=== PATIENT | male | born 1995 | race African-American/Black ===

== ENCOUNTER 2018-05-29 18:53 | Inpatient (IN) | payer MEDICAID, OTHER ==
[~2018-05-29] VITALS: Ht 172.7 cm; Wt 98.2 kg
[2018-05-29 19:28] LABS: Basophils # (auto) 0 uL; Basophils % (auto) 0.3 % (0.0-2.0); Eosinophils # (auto) 0 uL; Eosinophils % (auto) 0.1 % (0.0-7.0); Hematocrit 46.5 % (41.0-53.0); Hemoglobin 15.8 g/dL (13.5-17.5); Lymphocytes # (auto) 0.6 uL; Lymphocytes % (auto) 7.8 % (10.0-50.0); Mean Corpuscular Hemoglobin 29.7 pg (28.0-32.0); Mean Corpuscular Hgb Conc. 33.8 g/dL (32.0-36.0); Mean Corpuscular Volume 87.7 fL (80.0-100.0); Monocytes # (auto) 0 uL; Monocytes % (auto) 0.6 % (0.0-12.0); Neutrophils # (auto) 6.8 uL; Neutrophils % (auto) 91.2 % (37.0-80.0); Platelet Count (auto) 231 10^3/uL (140-450); Red Blood Cells 5.31 10^6/uL (4.5-5.90); Red Cell Distribution Width 13.8 % (11.8-14.3); White Blood Cell 7.4 10^3/uL (4.4-10.8)
[2018-05-29 19:44] LABS: Urine Bacteria FEW /hpf (None Seen); Urine Blood 1+ /uL (Negative); Urine Mucus FEW (None Seen); Urine WBC 10 /hpf (0 - 3)
[2018-05-29] MEDS ORDERED: SODIUM CHLORIDE 0.9% 3,150 ML IV ONE (19:45)
[2018-05-29 19:46] LABS: Amphetamine Screen, Urine NEGATIVE (NEGATIVE); Barbiturate Scree,Urine NEGATIVE (NEGATIVE); Benzodiazephine Screen, Urine NEGATIVE (NEGATIVE); Cannabinoid Screen, Urine NEGATIVE (NEGATIVE); Cocaine Screen, Urine NEGATIVE (NEGATIVE); Opiate Scree,Urine NEGATIVE (NEGATIVE); Phencyclidine Screen, Urine NEGATIVE (NEGATIVE)
[2018-05-29 19:47] LABS: Albumin 3.6 g/dL (3.4-5.0); BUN/Creatinine Ratio 8.1; Calcium 8.8 mg/dL (8.5-10.1); Potassium 4.1 mmol/L (3.5-5.1)
[2018-05-29 19:48] LABS: Alcohol, Urine < 3.0 mg/dL (0-5)
[2018-05-29 19:50] LABS: Bilirubin, Total 1.8 mg/dL (0.2-1.0); Total Protein 8.5 g/dL (6.4-8.2)
[2018-05-29] MEDS ORDERED: cefTRIAXone 1GM/50ML D5W 50 ML IV ONE (20:00)
[2018-05-29] MEDS ORDERED: ACETAMINOPHEN 500 MG TAB PO ONE (20:00)
[2018-05-29 20:20] LABS: Lactic Acid w/Reflex 2.5 mmol/L (0.4-2.0)
[2018-05-29 20:30] LABS: INR 0.94 (0.9-1.15); Partial Thromboplastin Time 28.5 sec (23.78-33.04); Prothrombin Time 10.1 sec (9.27-12.13)
[2018-05-29] MEDS ORDERED: IODIXANOL 320MG/ML 100ML BTL IV ONE (21:49)
[2018-05-29] MEDS ORDERED: VANCOMYCIN 1GM/250ML 250 ML IV ONE (22:15)
[2018-05-30] VITALS (7 sets, daily range): BP systolic 105–133; BP diastolic 45–82
[2018-05-30] MEDS ORDERED: TEMAZEPAM 15 MG CAP PO PRN (00:30)
[2018-05-30] MEDS ORDERED: ONDANSETRON HCL 4 MG/2 ML VIAL IV PRN ×2 (00:30→01:15)
[2018-05-30] MEDS ORDERED: SODIUM CHLORIDE 0.9% 1,000 ML IV ONE ×2 (01:00→07:15)
[2018-05-30] MEDS ORDERED: VANCOMYCIN PER PHARMACY 0 MG IV SCH (01:00)
[2018-05-30] MEDS ORDERED: HYDROcodone-ACET 5/325MG TAB PO PRN (01:15)
[2018-05-30] MEDS ORDERED: MORPHINE SULFATE 4 MG/ML SYR/VIAL IV PRN (01:15)
[2018-05-30] MEDS ORDERED: NITROGLYCERIN 0.4 MG SL TAB SL PRN (01:15)
[2018-05-30] MEDS ORDERED: ACETAMINOPHEN 325 MG TAB PO PRN (01:15)
[2018-05-30] MEDS ORDERED: SODIUM CHLORIDE 0.9% 1,000 ML IV SCH (02:00)
[2018-05-30] MEDS ORDERED: VANCOMYCIN 1GM/250ML 250 ML IV ONE (02:00)
[2018-05-30] MEDS ORDERED: LEVOFLOXACIN 500MG 100 ML IV SCH (02:00)
[2018-05-30 04:57] LABS: Basophils # (auto) 0 uL; Basophils % (auto) 0.4 % (0.0-2.0); Eosinophils # (auto) 0 uL; Hematocrit 47.1 % (41.0-53.0); Hemoglobin 15.5 g/dL (13.5-17.5); Lymphocytes # (auto) 1.1 uL; Mean Corpuscular Hemoglobin 29.4 pg (28.0-32.0); Mean Corpuscular Hgb Conc. 32.9 g/dL (32.0-36.0); Mean Corpuscular Volume 89.3 fL (80.0-100.0); Neutrophils % (auto) 82.6 % (37.0-80.0); Platelet Count (auto) 206 10^3/uL (140-450); Red Blood Cells 5.27 10^6/uL (4.5-5.90); Red Cell Distribution Width 13.9 % (11.8-14.3); White Blood Cell 12.2 10^3/uL (4.4-10.8)
[2018-05-30 05:20] LABS: Potassium 4.3 mmol/L (3.5-5.1)
[2018-05-30] MEDS: ACETAMINOPHEN 325 MG TAB PO PRN (05:26)
[2018-05-30 05:27] LABS: Albumin 3.2 g/dL (3.4-5.0); BUN/Creatinine Ratio 7.3; Bilirubin, Total 1.8 mg/dL (0.2-1.0); Calcium 8.3 mg/dL (8.5-10.1); Total Protein 7.8 g/dL (6.4-8.2)
[2018-05-30] MEDS: SODIUM CHLORIDE 0.9% 1,000 ML IV SCH ×3 (07:15→23:40)
[2018-05-30] MEDS ORDERED: IBUPROFEN 800 MG TAB PO ONE (07:30)
[2018-05-30] MEDS: PIPERACILLIN-TAZOB 3.375GM 100 ML IV SCH ×4 (07:30→23:39)
[2018-05-30] MEDS: LEVOFLOXACIN 500MG 100 ML IV SCH (10:00)
[2018-05-30] MEDS: FAMOTIDINE 20 MG TAB PO SCH ×2 (10:00→21:23)
[2018-05-30] MEDS ORDERED: FAMOTIDINE 20 MG TAB PO SCH (10:00)
[2018-05-30] MEDS ORDERED: CEFTRIAXONE SODIUM 2 GM in D5W 5% 50 ML IV ONE (10:30)
[2018-05-30] MEDS ORDERED: VANCOMYCIN 1GM/250ML 250 ML IV SCH (15:00)
[2018-05-30] MEDS ORDERED: cefTRIAXone 1GM/50ML D5W 50 ML IV SCH (21:00)
[2018-05-31] MEDS: HYDROcodone-ACET 5/325MG TAB PO PRN ×2 (01:34→21:45)
[2018-05-31 04:56] VITALS: BP 123/80
[2018-05-31] MEDS: PIPERACILLIN-TAZOB 3.375GM 100 ML IV SCH ×4 (05:30→23:35)
[2018-05-31] MEDS: ACETAMINOPHEN 325 MG TAB PO PRN (07:01)
[2018-05-31] MEDS: SODIUM CHLORIDE 0.9% 1,000 ML IV SCH ×3 (07:15→23:15)
[2018-05-31 08:00] VITALS: BP 119/84
[2018-05-31 09:00] VITALS: BP 119/84
[2018-05-31] MEDS: LEVOFLOXACIN 500MG 100 ML IV SCH (09:39)
[2018-05-31] MEDS: FAMOTIDINE 20 MG TAB PO SCH ×2 (09:39→21:45)
[2018-05-31 13:00] VITALS: BP 124/75
[2018-05-31 15:06] LABS: Basophils # (auto) 0 uL; Basophils % (auto) 0.3 % (0.0-2.0); Eosinophils # (auto) 0 uL; Eosinophils % (auto) 0.3 % (0.0-7.0); Hematocrit 45.8 % (41.0-53.0); Hemoglobin 15.4 g/dL (13.5-17.5); Lymphocytes # (auto) 1.6 uL; Lymphocytes % (auto) 16.9 % (10.0-50.0); Mean Corpuscular Hemoglobin 29.3 pg (28.0-32.0); Mean Corpuscular Hgb Conc. 33.7 g/dL (32.0-36.0); Mean Corpuscular Volume 87.1 fL (80.0-100.0); Monocytes # (auto) 0.8 uL; Monocytes % (auto) 8.5 % (0.0-12.0); Neutrophils # (auto) 6.9 uL; Platelet Count (auto) 186 10^3/uL (140-450); Red Blood Cells 5.26 10^6/uL (4.5-5.90); Red Cell Distribution Width 13.7 % (11.8-14.3); White Blood Cell 9.4 10^3/uL (4.4-10.8)
[2018-05-31 15:19] LABS: BUN/Creatinine Ratio 8.1; Calcium 8.5 mg/dL (8.5-10.1); Potassium 3.7 mmol/L (3.5-5.1)
[2018-05-31 15:21] LABS: Bilirubin, Total 1.2 mg/dL (0.2-1.0); Total Protein 7.9 g/dL (6.4-8.2)
[2018-05-31 17:00] VITALS: BP 120/70
[2018-05-31 21:46] VITALS: BP 150/74
[2018-06-01 05:05] VITALS: BP 122/76
[2018-06-01] MEDS: PIPERACILLIN-TAZOB 3.375GM 100 ML IV SCH ×4 (05:30→23:33)
[2018-06-01 05:36] LABS: Basophils # (auto) 0 uL; Basophils % (auto) 0.2 % (0.0-2.0); Eosinophils # (auto) 0 uL; Hematocrit 43.8 % (41.0-53.0); Hemoglobin 14.7 g/dL (13.5-17.5); Lymphocytes # (auto) 1.1 uL; Lymphocytes % (auto) 8.9 % (10.0-50.0); Mean Corpuscular Hemoglobin 29.3 pg (28.0-32.0); Mean Corpuscular Hgb Conc. 33.6 g/dL (32.0-36.0); Mean Corpuscular Volume 87.3 fL (80.0-100.0); Monocytes # (auto) 0.6 uL; Monocytes % (auto) 4.4 % (0.0-12.0); Neutrophils # (auto) 10.9 uL; Neutrophils % (auto) 86.5 % (37.0-80.0); Nucleated Red Blood Cells % 0.1 %; Platelet Count (auto) 184 10^3/uL (140-450); Red Blood Cells 5.02 10^6/uL (4.5-5.90); Red Cell Distribution Width 13.8 % (11.8-14.3); White Blood Cell 12.6 10^3/uL (4.4-10.8)
[2018-06-01 05:46] LABS: Albumin 2.8 g/dL (3.4-5.0); Calcium 8.5 mg/dL (8.5-10.1); Magnesium 2.2 mg/dL (1.6-2.6); Potassium 3.6 mmol/L (3.5-5.1)
[2018-06-01 05:49] LABS: Bilirubin, Total 1.1 mg/dL (0.2-1.0); Total Protein 7.5 g/dL (6.4-8.2)
[2018-06-01 08:00] VITALS: BP 117/75
[2018-06-01 08:38] VITALS: BP 117/75
[2018-06-01] MEDS: SODIUM CHLORIDE 0.9% 1,000 ML IV SCH ×3 (09:36→23:15)
[2018-06-01] MEDS: FAMOTIDINE 20 MG TAB PO SCH ×2 (09:37→21:34)
[2018-06-01 12:31] VITALS: BP 122/77
[2018-06-01 17:02] VITALS: BP 132/69
[2018-06-01] MEDS: HYDROcodone-ACET 5/325MG TAB PO PRN (21:35)
[2018-06-01 22:00] VITALS: BP 102/58
[2018-06-01] MEDS ORDERED: diphenhdrAMINE HCL 25 MG CAP PO ONE (22:00)
[2018-06-02] MEDS: ACETAMINOPHEN 325 MG TAB PO PRN (05:03)
[2018-06-02 05:24] VITALS: BP 131/73
[2018-06-02] MEDS: PIPERACILLIN-TAZOB 3.375GM 100 ML IV SCH ×3 (05:34→18:10)
[2018-06-02 06:23] LABS: Basophils # (auto) 0.1 uL; Basophils % (auto) 0.9 % (0.0-2.0); Eosinophils # (auto) 0 uL; Eosinophils % (auto) 0.5 % (0.0-7.0); Hematocrit 40.4 % (41.0-53.0); Hemoglobin 13.8 g/dL (13.5-17.5); Lymphocytes # (auto) 1.6 uL; Lymphocytes % (auto) 20.7 % (10.0-50.0); Mean Corpuscular Hemoglobin 29.2 pg (28.0-32.0); Mean Corpuscular Hgb Conc. 34.2 g/dL (32.0-36.0); Mean Corpuscular Volume 85.4 fL (80.0-100.0); Monocytes # (auto) 0.8 uL; Monocytes % (auto) 9.7 % (0.0-12.0); Neutrophils # (auto) 5.3 uL; Neutrophils % (auto) 68.2 % (37.0-80.0); Nucleated Red Blood Cells % 0.1 %; Platelet Count (auto) 214 10^3/uL (140-450); Red Blood Cells 4.74 10^6/uL (4.5-5.90); Red Cell Distribution Width 13.9 % (11.8-14.3); White Blood Cell 7.8 10^3/uL (4.4-10.8)
[2018-06-02 06:44] LABS: BUN/Creatinine Ratio 10.4; Calcium 8.3 mg/dL (8.5-10.1); Potassium 3.5 mmol/L (3.5-5.1)
[2018-06-02 06:46] LABS: Bilirubin, Total 1.1 mg/dL (0.2-1.0)
[2018-06-02] MEDS: SODIUM CHLORIDE 0.9% 1,000 ML IV SCH ×3 (08:58→20:45)
[2018-06-02 09:00] VITALS: BP 125/76
[2018-06-02] MEDS: FAMOTIDINE 20 MG TAB PO SCH ×2 (10:18→21:31)
[2018-06-02 13:00] VITALS: BP 126/74
[2018-06-02] MEDS ORDERED: IOHEXOL 300 MG/ML 100ML BOTTLE IJ ONE (15:31)
[2018-06-02] MEDS: HYDROcodone-ACET 5/325MG TAB PO PRN ×2 (15:43→21:36)
[2018-06-02] MEDS ORDERED: GELATIN 1 SPONGE SIZE 100 TOP ONE (16:04)
[2018-06-02] MEDS ORDERED: LIDOCAINE 1% HCL (LOCAL ANESTH.) INJ 20ML MDV ONE (16:06)
[2018-06-02] MEDS ORDERED: fentaNYL CITRATE 100 MCG/2 ML VL ONE (16:41)
[2018-06-02 17:00] VITALS: BP 120/70
[2018-06-02 21:36] VITALS: BP 121/81
[2018-06-03] MEDS: PIPERACILLIN-TAZOB 3.375GM 100 ML IV SCH ×3 (00:49→12:30)
[2018-06-03 05:00] VITALS: BP 119/67
[2018-06-03 05:12] LABS: Basophils # (auto) 0 uL; Basophils % (auto) 0.2 % (0.0-2.0); Eosinophils # (auto) 0.1 uL; Eosinophils % (auto) 0.6 % (0.0-7.0); Hematocrit 45.1 % (41.0-53.0); Hemoglobin 14.9 g/dL (13.5-17.5); Lymphocytes # (auto) 2.5 uL; Lymphocytes % (auto) 22.1 % (10.0-50.0); Mean Corpuscular Hgb Conc. 33.1 g/dL (32.0-36.0); Mean Corpuscular Volume 87.6 fL (80.0-100.0); Monocytes # (auto) 1.3 uL; Monocytes % (auto) 11.5 % (0.0-12.0); Neutrophils # (auto) 7.5 uL; Neutrophils % (auto) 65.6 % (37.0-80.0); Nucleated Red Blood Cells % 0.2 %; Platelet Count (auto) 267 10^3/uL (140-450); Red Blood Cells 5.14 10^6/uL (4.5-5.90); Red Cell Distribution Width 14.4 % (11.8-14.3); White Blood Cell 11.4 10^3/uL (4.4-10.8)
[2018-06-03 05:26] LABS: Calcium 8.9 mg/dL (8.5-10.1); Potassium 3.6 mmol/L (3.5-5.1)
[2018-06-03 05:29] LABS: BUN/Creatinine Ratio 10.8
[2018-06-03] MEDS: HYDROcodone-ACET 5/325MG TAB PO PRN ×2 (05:31→09:51)
[2018-06-03] MEDS: SODIUM CHLORIDE 0.9% 1,000 ML IV SCH ×2 (07:13→16:45)
[2018-06-03 09:00] VITALS: BP 112/64
[2018-06-03] MEDS: FAMOTIDINE 20 MG TAB PO SCH (09:51)
[2018-06-03 13:00] VITALS: BP 115/72
[2018-06-03 17:20] VITALS: BP 123/68
[2018-06-03 20:00] VITALS: BP 113/64
[2018-06-03] MEDS: CIPROFLOXACIN HCL 500 MG TAB PO SCH (21:45)
[2018-06-03 22:00] VITALS: BP 113/64
[2018-06-04] MEDS: SODIUM CHLORIDE 0.9% 1,000 ML IV SCH ×3 (02:45→21:40)
[2018-06-04 04:56] VITALS: BP 120/64
[2018-06-04 05:14] LABS: Basophils # (auto) 0.1 uL; Basophils % (auto) 0.8 % (0.0-2.0); Eosinophils # (auto) 0.1 uL; Eosinophils % (auto) 1.1 % (0.0-7.0); Hematocrit 43.6 % (41.0-53.0); Hemoglobin 14.7 g/dL (13.5-17.5); Lymphocytes # (auto) 2.3 uL; Lymphocytes % (auto) 27.6 % (10.0-50.0); Mean Corpuscular Hemoglobin 29.3 pg (28.0-32.0); Mean Corpuscular Hgb Conc. 33.8 g/dL (32.0-36.0); Mean Corpuscular Volume 86.8 fL (80.0-100.0); Monocytes # (auto) 0.8 uL; Neutrophils % (auto) 60.5 % (37.0-80.0); Nucleated Red Blood Cells % 0.1 %; Platelet Count (auto) 310 10^3/uL (140-450); Red Blood Cells 5.02 10^6/uL (4.5-5.90); Red Cell Distribution Width 14.1 % (11.8-14.3); White Blood Cell 8.2 10^3/uL (4.4-10.8)
[2018-06-04 05:29] LABS: BUN/Creatinine Ratio 15.1; Calcium 8.6 mg/dL (8.5-10.1); Potassium 3.8 mmol/L (3.5-5.1)
[2018-06-04 08:00] VITALS: BP 119/65
[2018-06-04] MEDS: CIPROFLOXACIN HCL 500 MG TAB PO SCH ×2 (09:40→21:36)
[2018-06-04 10:31] VITALS: BP 119/60
[2018-06-04 13:00] VITALS: BP 110/59
[2018-06-04 17:00] VITALS: BP 141/71
[2018-06-04 22:00] VITALS: BP 115/61
[2018-06-05 05:00] VITALS: BP 103/61
[2018-06-05 08:42] VITALS: BP 102/56
[2018-06-05] MEDS: CIPROFLOXACIN HCL 500 MG TAB PO SCH (09:56)
[2018-06-05] MEDS ORDERED: HYDROcodone-ACET 5/325MG TAB PO PRN (11:15)
[2018-06-05 11:32] VITALS: BP 102/56
[2018-06-05 12:25] VITALS: BP 122/80
== END 2018-06-05 14:35 | disposition home or self-care (01) | DRG 720 ==
LOC: ER 18:53 → TELE 05-30 01:10 → TELE-WESTW 05-30 02:13 → WEST WING 06-03 14:41
PROVIDERS: ADMIT Nurse Practitioner; ATTEND Internal Medicine
PROC: 0T913ZZ Drainage of Left Kidney, Percutaneous Approach (ICD-10-PCS; principal; 2018-06-02)
DX: A41.51 Sepsis due to Escherichia coli [E. coli] (principal); N17.0 Acute kidney failure with tubular necrosis; N15.1 Renal and perinephric abscess; E66.9 Obesity, unspecified; J00 Acute nasopharyngitis [common cold]; Q63.1 Lobulated, fused and horseshoe kidney; N28.1 Cyst of kidney, acquired; N39.0 Urinary tract infection, site not specified; N13.6 Pyonephrosis; E44.0 Moderate protein-calorie malnutrition; F17.210 Nicotine dependence, cigarettes, uncomplicated; K40.90 Unilateral inguinal hernia, without obstruction or gangrene, not specified as recurrent; K76.0 Fatty (change of) liver, not elsewhere classified; N13.9 Obstructive and reflux uropathy, unspecified; R51 Headache; Z83.3 Family history of diabetes mellitus
CPT/HCPCS: 10022; 36415; 70450; 71045; 74150; 74176; 74177; 76775; 77012; 80048; 80053; 80307; 81001; 82247; 83605; 83690; 83735; 84484; 85025; 85610; 85730; 87040; 87077; 87086; 87186; 87205; 96361; 96365; 96366; 96368; C1729; G0378; J0696; J1956; J2001; J2543; J7060; Q9967

== ENCOUNTER → 2018-06-10 | Outpatient (CLI) | payer MEDICAID ==
[~2018-06-10] MED LIST: IOHEXOL 300 MG/ML 100ML BOTTLE IJ ONE
== END | disposition home or self-care (01) ==
LOC: XY 09:23
PROVIDERS: ATTEND Internal Medicine
DX: Z43.6 Encounter for attention to other artificial openings of urinary tract (principal); Z83.3 Family history of diabetes mellitus
CPT/HCPCS: 50431; 74425; 76000; Q9967

== ENCOUNTER 2018-06-28 16:38 | Emergency (ER) | payer MEDICAID ==
[~2018-06-28] VITALS: Ht 172.7 cm; Wt 101.6 kg
[2018-06-28 17:20] LABS: Basophils # (auto) 0.1 uL; Basophils % (auto) 1.1 % (0.0-2.0); Eosinophils # (auto) 0.1 uL; Eosinophils % (auto) 1.1 % (0.0-7.0); Hematocrit 45.7 % (41.0-53.0); Hemoglobin 15.1 g/dL (13.5-17.5); Lymphocytes # (auto) 2.4 uL; Lymphocytes % (auto) 35.4 % (10.0-50.0); Mean Corpuscular Hemoglobin 28.7 pg (28.0-32.0); Monocytes # (auto) 0.3 uL; Monocytes % (auto) 4.7 % (0.0-12.0); Neutrophils % (auto) 57.7 % (37.0-80.0); Nucleated Red Blood Cells % 0.1 %; Platelet Count (auto) 254 10^3/uL (140-450); Red Blood Cells 5.26 10^6/uL (4.5-5.90); Red Cell Distribution Width 14.8 % (11.8-14.3); White Blood Cell 6.9 10^3/uL (4.4-10.8)
[2018-06-28 17:34] LABS: Albumin 3.8 g/dL (3.4-5.0); BUN/Creatinine Ratio 10.2; Calcium 8.4 mg/dL (8.5-10.1); Potassium 3.5 mmol/L (3.5-5.1)
[2018-06-28 17:37] LABS: Bilirubin, Total 1.2 mg/dL (0.2-1.0)
[2018-06-28] MEDS ORDERED: IOHEXOL 300 MG/ML 100ML BOTTLE IJ ONE (22:01)
[2018-06-28 22:51] VITALS: BP 124/67
[2018-06-28 23:44] LABS: Urine Bacteria NONE SEEN /hpf (None Seen); Urine Blood Negative /uL (Negative); Urine Specific Gravity 1.043 (1.001-1.035); Urine WBC 1 /hpf (0 - 3)
== END 2018-06-29 00:04 | disposition home or self-care (01) ==
LOC: ER 16:38
DX: T83.092A Other mechanical complication of nephrostomy catheter, initial encounter (principal); F17.210 Nicotine dependence, cigarettes, uncomplicated; Y84.6 Urinary catheterization as the cause of abnormal reaction of the patient, or of later complication, without mention of misadventure at the time of the procedure; Y82.8 Other medical devices associated with adverse incidents
CPT/HCPCS: 36415; 74177; 80053; 81001; 85025; 99284; Q9967